=== PATIENT | male | born 1970 | race Asian ===

== ENCOUNTER 2021-12-11 12:02 | Emergency (ER) | payer SELFPAY ==
[~2021-12-11] VITALS: Ht 165.1 cm; Wt 67.1 kg
[2021-12-11 12:21] VITALS: BP 132/78
[2021-12-11 13:06] LABS: BASOPHILS % (AUTO) 0.2 % (0.0-2.0); EOSINOPHILS % (AUTO) 0.6 % (0.0-4.0); HEMATOCRIT 40.4 % (36-52); HEMOGLOBIN 13.8 g/dL (12.0-18.0); LYMPHOCYTES % (AUTO) 27.5 % (20.5-51.1); MEAN CORPUSCULAR HEMOGLOBIN 30 pg (27-31); MEAN CORPUSCULAR HGB CONC 34 g/dL (33-37); MONOCYTES # (AUTO) 0.4 K/uL (0.8-1.0); MONOCYTES % (AUTO) 5.3 % (1.7-9.3); NEUTROPHILS # (AUTO) 4.7 K/uL (1.8-7.7); NEUTROPHILS % (AUTO) 66.4 % (42.2-75.2); PLATELET COUNT (AUTO) 264 K/uL (140-450); RED BLOOD CELL COUNT(AUTO) 4.64 MIL/uL (4.20-6.10); RED CELL DISTRIBUTION WIDTH 12.9 % (11.6-13.7); WHITE BLOOD COUNT (AUTO) 7.1 K/uL (4.8-10.8)
[2021-12-11 13:12] LABS: PROTHROMBIN TIME 11.3 secs (10.8-13.4)
[2021-12-11 13:17] LABS: ALBUMIN 4.2 g/dL (3.4-5.0); ANION GAP 13.7 (8-16); CARBON DIOXIDE 28.2 mmol/L (21-32); CREATININE 0.9 mg/dL (0.6-1.3); POTASSIUM 3.9 mmol/L (3.5-5.1); TOTAL BILIRUBIN 0.3 mg/dL (0.0-1.0)
--- NOTE | 2021-12-11 13:30 | NUR ---
51/M PRESENTS TO ED WITH C/O DIZZINESS AND HEART BURN SINCE FRIDAY. REPORTS HE TOOK OMEPRAZOLE WITH MILD RELIEF. DENIES CP, SOB, FEVERS OR NUMBNESS.
--- NOTE | 2021-12-11 16:22 | NUR ---
CALLED FOR PT IN LOBBY AND OUTSIDE, NO ANSWER. DR. NELSON MADE AWARE.
[2021-12-11] MEDS ORDERED: OMEP40EC24 PO (17:32)
[2021-12-11 17:51] VITALS: BP 110/75
--- NOTE | 2021-12-11 17:51 | NUR ---
Patient discharged with v/s stable. Written and verbal after care instructions ABOUT GERD given and explained. Patient alert, oriented and verbalized understanding of instructions. Ambulatory with steady gait. All questions addressed prior to discharge. ID band removed. Patient advised to follow up with PMD. Rx of PRILOSEC given. Patient educated on indication of medication including possible reaction and side effects. Opportunity to ask questions provided and answered.
== END 2021-12-11 17:51 | disposition home or self-care (01) ==
LOC: MED 12:02
DX: R10.13 Epigastric pain (principal); R42 Dizziness and giddiness
CPT/HCPCS: 36415; 71045; 80053; 83880; 84484; 85025; 85610; 85730; 93005; 99285